=== PATIENT | male | born 1980 | race Caucasian/White ===

== ENCOUNTER 2025-10-17 21:44 | Emergency (ER) | payer OTHER, MEDICAID ==
[~2025-10-17] VITALS: Ht 172.7 cm; Wt 84.0 kg
[2025-10-17 22:00] VITALS: O2SAT 98
[2025-10-17 22:16] VITALS: TEMP 99.3
[2025-10-17] MEDS: ACETAMINOPHEN 325MG TABLET PO ONE (22:16)
[2025-10-17] MEDS: ONDANSETRON 4MG ODT PO ONE (22:16)
[2025-10-17 22:17] VITALS: PULSE 97
[2025-10-17] MEDS: LIDOCAINE 5% PATCH TOP SCH (22:17)
[2025-10-17] MEDS: KETOROLAC 30MG/ML VIAL IM ONE (22:17)
[2025-10-18 00:13] VITALS: BP 114/72; RESP 14
[2025-10-18] MEDS ORDERED: ONDA4TAB50 MT (00:57)
[2025-10-18] MEDS ORDERED: LIDO-53 TP (00:57)
== END 2025-10-18 01:15 | disposition home or self-care (01) ==
LOC: ER 21:44
DX: S06.0XAA Concussion with loss of consciousness status unknown, initial encounter (principal); M54.2 Cervicalgia; M25.511 Pain in right shoulder; X58.XXXA Exposure to other specified factors, initial encounter; Y93.89 Activity, other specified; Y92.410 Unspecified street and highway as the place of occurrence of the external cause; Y99.8 Other external cause status
CPT/HCPCS: 99285; 70450; 73030; 72125; 93005; 96372; J1885; Q0162